=== PATIENT | female | born 2000 | race Caucasian/White ===

== ENCOUNTER 2021-05-17 15:11 | Emergency (ER) | payer OTHER | END 2021-05-17 16:32 | disposition home or self-care (01) | LOC: VM.ED 15:11 | DX: B86 Scabies (principal); Z91.048 Other nonmedicinal substance allergy status | CPT/HCPCS: 99282 ==

== ENCOUNTER 2021-05-22 16:43 | Emergency (ER) | payer OTHER | END 2021-05-22 17:00 | disposition left against medical advice (07) | LOC: VM.ED 16:43 | DX: Z53.21 Procedure and treatment not carried out due to patient leaving prior to being seen by health care provider (principal) ==